=== PATIENT | male | born 1970 | race African-American/Black ===

== ENCOUNTER 2016-11-29 08:12 | Emergency (ER) | payer SELFPAY ==
[~2016-11-29] VITALS: Ht 188 cm; Wt 104.5 kg
[~2016-11-29 08:12] MED LIST: CATAPRES0.2 MG; FLEXERIL 1010 MG/TAB PO; INDERAL 20MG20 MG; NORCO 325 MG-51 TAB PO
[2016-11-29 08:14] VITALS: BP 166/100; PULSE 101; TEMP 98.6
[2016-11-29] MEDS ORDERED: NORCO 325 MG-51 TAB PO (09:05)
[2016-11-29] MEDS ORDERED: BACTRIM DS 8001 TAB PO (09:05)
== END 2016-11-29 09:19 | disposition home or self-care (01) ==
LOC: COL.ER 08:12
DX: M70.22 Olecranon bursitis, left elbow (principal); M70.21 Olecranon bursitis, right elbow; I10 Essential (primary) hypertension; F17.210 Nicotine dependence, cigarettes, uncomplicated; Z91.14 Patient's other noncompliance with medication regimen

== ENCOUNTER 2018-01-14 19:29 | Observation (INO) | payer SELFPAY ==
[~2018-01-14] VITALS: Ht 190.5 cm; Wt 101.6 kg
[~2018-01-14 19:29] MED LIST changes: +BACTRIM DS 8001 TAB PO
[2018-01-14 20:48] LABS: BASO # 0.1 (0.0-0.2); EOS # 0.3 (0.0-0.7); EOS % 3.8 % (0-4.0); GRAN # 3.4 (1.4-6.5); GRAN % 42.5 % (42.2-75.2); HEMATOCRIT 41.3 % (42.0-52.0); HEMOGLOBIN 13.9 g/dl (13.5-18.0); LYMPH # 3.7 (1.2-3.4); LYMPH % 45.9 % (20.0-51.0); MEAN CELL VOLUME 93 fl (80.0-100.0); MEAN CORPUSCULAR HEMOGLOBIN 31 pg (27.0-31.0); MEAN CORPUSCULAR HGB CONC 34 g/dl (33.0-37.0); MEAN PLATELET VOLUME 9.2 fl (7.4-10.4); MONO # 0.5 (0.1-0.6); MONO % 6.7 % (1.7-9.3); PLATELET COUNT 294 K/mm3 (130-400); RED BLOOD COUNT 4.42 M/mm3 (4.20-5.60); REDCELL DISTRIBUTION WIDTH-CV 12.9 % (11.5-14.5)
[2018-01-14 20:57] LABS: ALBUMIN 3.9 gm/dL (3.5-5.0); BILIRUBIN,TOTAL 0.3 mg/dL (0.0-1.0); C-REACTIVE PROTEIN 0.8 mg/dL (0.0-0.9); CALCIUM 10.4 mg/dL (8.4-10.2); CREATININE, serum 0.95 mg/dL (0.66-1.25); TOTAL PROTEIN 7.1 gm/dL (6.4-8.2)
[2018-01-14 23:17] LABS: COLLECTION METHOD CLEAN CATCH
[2018-01-14 23:24] LABS: MUCOUS Present /lpf; PH 5 (5-8); SQUAMOUS EPITHELIAL None Seen /hpf; URINE APPEARANCE Hazy; URINE BACTERIA None Seen /hpf; URINE BILIRUBIN Negative (NEGATIVE); URINE BLOOD 2+ (NEGATIVE); URINE CALCIUM OXALATE CRYSTAL Present /hpf; URINE COLOR Yellow; URINE GLUCOSE Negative (NEGATIVE); URINE KETONE Negative (NEGATIVE); URINE LEUKOCYTE ESTERASE 2+ (NEGATIVE); URINE NITRATE Negative (NEGATIVE); URINE PROTEIN(semi-quant) 1+ (NEGATIVE); URINE RBC 20-50 /hpf; URINE UROBILINOGEN Negative (NEGATIVE)
[2018-01-15] VITALS (8 sets, daily range): BP systolic 137–156; BP diastolic 79–88; PULSE 51–73; TEMP 97.6–98.2
== END 2018-01-15 13:28 | disposition home or self-care (01) ==
LOC: COL.ER 19:29 → SURG 23:45 → EDBEDREQ 01-15 00:35 → SURG 01-15 13:28
PROVIDERS: Emergency Medicine
DX: N20.1 Calculus of ureter (principal); N39.0 Urinary tract infection, site not specified; I10 Essential (primary) hypertension; Z91.14 Patient's other noncompliance with medication regimen; G47.33 Obstructive sleep apnea (adult) (pediatric); F17.210 Nicotine dependence, cigarettes, uncomplicated
CPT/HCPCS: C1769; C2617; G0378; J0690; J0696; J1100; J1885; J2360; J2405; J2704; J2930; J3010; J7030; Q9967

== ENCOUNTER 2018-01-19 06:14 | Day surgery (SDC) | payer SELFPAY ==
[2018-01-19] VITALS (7 sets, daily range): BP systolic 151–159; BP diastolic 95–102; PULSE 61–85; TEMP 97.7–98.4
[~2018-01-19] VITALS: Ht 190.5 cm; Wt 97.7 kg
[2018-01-19] MEDS ORDERED: CIPRO 500MG TA500 MG PO (07:08)
[2018-01-19] MEDS ORDERED: PERCOCET 325 MG1 TA2 PO (07:08)
[2018-01-19] MEDS ORDERED: COLACE 100100 MG/CAP PO (07:09)
== END 2018-01-19 10:47 | disposition home or self-care (01) ==
LOC: SDCO 06:14
DX: N20.1 Calculus of ureter (principal); Z87.442 Personal history of urinary calculi; I10 Essential (primary) hypertension; F17.210 Nicotine dependence, cigarettes, uncomplicated; Z79.899 Other long term (current) drug therapy
CPT/HCPCS: J0690; J1100; J1885; J2405; J2704; J3010; J7120

== ENCOUNTER → 2020-03-09 | Outpatient (CLI) | payer SELFPAY ==
[~2020-03-09] MED LIST changes: +CIPRO 500MG TA500 MG PO; +COLACE 100100 MG/CAP PO; +PERCOCET 325 MG1 TA2 PO
== END ==
LOC: ZCOL.LAB 19:45
DX: B34.9 Viral infection, unspecified (principal); Z20.828 Contact with and (suspected) exposure to other viral communicable diseases